=== PATIENT | male | born 1965 | race Caucasian/White ===

== ENCOUNTER 2020-09-27 13:14 | Outpatient (REF) | payer OTHER, SELFPAY ==
[2020-09-27 16:11] LABS: Anion Gap 8.9 mmol/L (3-11); BUN 13 mg/dL (7-18); CO2 31.1 mmol/L (21.0-32.0); CREATININE 0.8 mg/dL (0.70-1.30); Calcium 9.7 mg/dL (8.5-10.1); Calculated LDL 184 mg/dL (<100); Chloride 102 mmol/L (98-107); Cholesterol 290 mg/dL (<200); Glucose 93 mg/dL (74-106); HDL Cholesterol 73 mg/dL (40-60); Potassium 4.2 mmol/L (3.5-5.1); Sodium 142 mmol/L (136-145); Triglyceride 165 mg/dL (<150)
== END 2020-09-27 13:15 | disposition home or self-care (01) ==
LOC: NCHCN 13:14
PROVIDERS: PCP Nurse Practitioner Family; Visit Provider Nurse Practitioner Family
DX: Z00.00 Encounter for general adult medical examination without abnormal findings (principal); I10 Essential (primary) hypertension; M25.521 Pain in right elbow
CPT/HCPCS: 80048; 80061

== ENCOUNTER 2021-08-19 14:08 | Outpatient (CLI) | payer OTHER, SELFPAY ==
--- NOTE | 2021-08-19 14:07 | DI.RAD_ITS ---
Exam(s) XR ELBOW LT COMPLETE EXAM: XR ELBOW LT COMPLETE CLINICAL HISTORY: L elbow pain. TECHNIQUE: 2D digital imaging was performed of the left elbow. Four images were obtained. AP, late ral and oblique views were obtained. COMPARISON: No exams were available for comparison FINDINGS: BONES: No acute fracture is present. No bony destructive lesion is seen. JOINTS: The elbow is normally aligned. No joint effusion is seen. SOFT TISSUE: Normal. IMPRESSION: Unremarkable radiographs of the left elbow. DATA REPOSITORY: RADIATION DOSE DELIVERED:
== END 2021-08-19 14:09 | disposition home or self-care (01) ==
LOC: DIORS 14:08
PROVIDERS: PCP Nurse Practitioner Family; Referring Provider Nurse Practitioner Family; Visit Provider Physician Assistant
DX: M25.522 Pain in left elbow; M77.12 Lateral epicondylitis, left elbow
CPT/HCPCS: 73080

== ENCOUNTER 2021-08-28 02:03 | Outpatient (CLI) | payer OTHER, SELFPAY ==
--- NOTE | 2021-08-28 08:15 | DI.MRI_ITS ---
Exam(s) MR UPPER JOINT LT WO EXAM: MR UPPER JOINT LT WO CLINICAL HISTORY: Persistent pain, LATERAL EPICONDYLITIS LT ELBOW, M77.12. TECHNIQUE: Multiplanar multisequence MRI was performed. COMPARISON: No exams were available for comparison FINDINGS: MR examination the elbow was performed according to the usual protocol. Bones: No significant bony signal abnormality seen in the region the elbow. There is small to moderate size elbow joint effusion. Medial structures: No gross medial tendinosis or ligament disruption. Triceps tendon: Mild signal abnormality at the triceps attachment on the olecranon, mild tendinosis a nd/or low-grade partial-thickness tear Biceps tendon: Abnormal signal consistent with mild biceps tendinosis, no significant tearing distal biceps tendon or radial attachment. Lateral structures: There is a thickened radial humeral meniscus noted. There is a a partial-thickne ss tear of common extensor tendon. Partial-thickness tear of radial collateral ligament and lateral ulnar collateral ligament. Annular ligament appears intact as visualized. IMPRESSION: The findings as described above are consistent with partial thickness tearing of common extensor tend on, approximately 50 percent the tendon appears torn, particularly more proximal components. There i s associated thickening of the radial humeral meniscus and there is probable partial-thickness tear o f radial collateral ligament and lateral ulnar collateral ligament. DATA REPOSITORY:
== END 2021-08-28 02:23 ==
LOC: DI 02:03
PROVIDERS: PCP Nurse Practitioner Family; Visit Provider Student in an Organized Health Care Education/Training Program
DX: M25.522 Pain in left elbow (principal); M77.12 Lateral epicondylitis, left elbow; M25.422 Effusion, left elbow; S56.512A Strain of other extensor muscle, fascia and tendon at forearm level, left arm, initial encounter; X58.XXXA Exposure to other specified factors, initial encounter
CPT/HCPCS: 73221

== ENCOUNTER 2021-09-10 02:18 | Outpatient (CLI) | payer OTHER, SELFPAY ==
[2021-09-10 21:16] LABS: COVID-19 PCR Negative (Negative)
[2021-09-10 23:21] LABS: Source Nasal/Nares
== END 2021-09-10 02:19 | disposition home or self-care (01) ==
LOC: LBO 02:18
PROVIDERS: PCP Nurse Practitioner Family; Visit Provider Student in an Organized Health Care Education/Training Program
DX: Z20.822 Contact with and (suspected) exposure to COVID-19 (principal)
CPT/HCPCS: 87635

== ENCOUNTER 2021-09-12 10:25 | Day surgery (SDC) | payer OTHER, SELFPAY ==
[2021-09-12] VITALS (8 sets, daily range): BP systolic 122–148; BP diastolic 77–98; PULSE 63–82; RESP 13–16; TEMP 36–37; O2SAT 96–99; BMI 25.6
--- NOTE | 2021-09-12 10:44 | W.ANESPRE ---
General Info Date of Service Date Performed: 09/12/21 Height: 5 ft 9 in Weight: 78.8 kg Body Mass Index (BMI): 25.6 Surgical Procedure: Operation Date: 09/12/21 11:35 Proposed Procedure Side Surgeon p Elbow Arthroscopy w/Debridement Lateral Epicondylitis Left Ivan Torres MD Meds Allergies and Home Medications Allergies Allergy/AdvReac Type Severity Reaction Status Date / Time No Known Allergies Allergy Unverified 09/12/21 10:42 Home Medication Medication Instructions Recorded hydrochlorothiazide 25 mg tablet 25 mg PO DAILY 10/14/20 acetaminophen 650 mg 1,300 mg PO Q8H PRN 09/12/21 tablet,extended release aspirin 81 mg tablet,delayed 81 mg PO DAILY 14 Days #14 tab 09/12/21 release naproxen 250 mg tablet 250 - 500 mg PO BID PRN #40 tab 09/12/21 oxycodone 5 mg tablet 5 - 10 mg PO Q4H PRN #12 tab MDD 09/12/21 30 mg Current Visit Medications: Current Medications Generic Name Dose Route Start Last Admin Trade Name Freq PRN Reason Stop Dose Admin Ringer's Solution 1,000 mls @ 100 mls/hr 09/12/21 06:00 IV 10/11/21 23:59 INFUSION TALI Cefazolin Sodium/Dextrose 2 gm in 50 mls @ 100 mls/hr 09/12/21 06:00 Ancef Duplex IVPB 09/12/21 16:00 PREOP TALI IV Miscellaneous Supplies 1 each 09/12/21 06:00 Iv Access IV 10/11/21 23:59 DIRECTED TALI Sodium Chloride 0 ml 09/12/21 06:00 Normal Saline Flush 10 Ml Syr IV 10/11/21 23:59 PRN PRN Sodium Chloride 0 ml 09/12/21 06:00 Normal Saline 10 Ml Vial IJ 10/11/21 23:59 DIRECTED PRN Sterile Water 0 ml 09/12/21 06:00 Water,Injection,Sterile 10 Ml Vial IJ 10/11/21 23:59 DIRECTED PRN PFSH Active Problems Active Problems: Problem Status Onset Code Lateral epicondylitis of left elbow M77.12 Medical History Medical History Arthritis HTN (hypertension) Surgical History Surgical History Colonoscopy - MAC (02/05/17) Tobacco Smoking/Tobacco Use Status: Former Tobacco Use Alcohol Alcohol Intake: current Alcohol intake frequency: 3 or more drinks per day Alcohol type: beer Substance Use Substance use: Never Substance use type: does not use Vital Signs and Lab Results Vital Signs Most Recent Vital Signs in EMR: Most Recent Vital Signs Temp Pulse Resp BP Pulse Ox 37.0 C 76 16 122/89 99 09/12/21 10:38 09/12/21 10:38 09/12/21 10:38 09/12/21 10:38 09/12/21 10:38 Lab Results Blood Type / Crossmatch: No Data to Display Complete Blood Count: No Data to Display Complete Metabolic Panel: No Data to Display Liver Function Panel: No Data to Display Coagulation Panel: No Data to Display Cardiac Panel: No Data to Display Arterial Blood Gas: No Data to Display Venous Blood Gas: No Data to Display Pancreas Panel: No Data to Display Thyroid Panel: No Data to Display Infectious Disease: Coronavirus (COVID-19)(PCR) Negative (Negative) 09/10/21 08:45 09/10/21 Coronavirus 2019 Source Nasal/Nares 09/10/21 08:45 09/10/21 Blood Cultures: No Data to Display Toxicology Panel: No Data to Display Anesthesia Assessment and Plan Anesthesia History Personal History: No History of Anesthesia Complications Family History: No Family History of Anesthesia Complications Exercise Tolerance Exercise Tolerance: Metabolic Equivalents>4 Pertinent Negatives Pertinent Negatives: No Symptoms of GERD, No Major Cardiovascular Symptoms or Complaints and No Major Pulmonary Symptoms or Complaints Cardiac & Pulmonary Exam Cardiac Exam: Normal S1/S2 Heart Sounds Pulmonary Exam: Clear Bilateral Breath Sounds Implantable Cardiac Device Does patient have a Pacemaker or an ICD?: No Airway Exam Known Difficult Airway: No Mallampati Class: 3 Mouth Opening: Narrow (< 3cm) Thyromental Distance: Less than 3 cm Neck Range of Motion: Limited ROM Neck Circumference: Normal Teeth Condition: Normal Dentition ASA Classification ASA Score: ASA 2 Emergency Case?: No NPO Status NPO Status: NPO Clears >2 hours, Solids >8 hours Anesthesia Plan Resuscitation Status: Full Code Anesthesia Technique: General Anesthesia Airway Planned: Endotracheal Tube Pain Management: Surgeon and patient request nerve block Monitors Used: Standard Monitors Preoperative Comments:: 55 yo male with left elbow epicondylitis. Sig PMHx: former smoker, 3 drinks etoh/day, HTN (HCTZ). Plan: supraSHIRAZ blackwell.
[2021-09-12] MEDS: Lactated Ringers 1,000 ML 100 ML IV (11:02)
--- NOTE | 2021-09-12 12:34 | W.ANESNERVE ---
Nerve Block Single Injection Procedure Date and Time Date Performed: 09/12/21 Procedure Start: 12:20 Location Where Procedure Performed Procedure Location: Day Surgery Unit Reason Performed: Postoperative Analgesia Requesting Provider: Ivan Torres Timeout Performed Timeout Performed: Yes Monitoring Used ECG, Blood Pressure and SpO2 Sterility Sterility: Hand Hygiene, Surgical Cap, Surgical Mask, Sterile Gloves and Chlorhexidine Sedation Given During Procedure Sedation Given (Indicate Dose Given): Versed IV Dose:: 2 mL Patient Mental Status Patient Mental Status: Sedate with meaningful communication Nerve Block 1st Nerve Block: Laterality: Left Block Type: Supraclavicular Needle / Catheter Used: 100mm SonoPlex II Local Anesthetic Bolus (Indicate Dose Given): Lidocaine used for local infiltration of skin, Injected in 3-5ml increments after negative blood aspiration, Bupivacaine 0.5% Dose:: 15 mL and Exparel Dose:: 10 mL Additives (Indicate Dose Given): None Ultrasound: Sterile probe cover and gel used Ultrasound Image Saved?: Yes Nerve Stimulator: Not Used Paresthesia: None Procedure Tolerated: No Complications Procedure Outcome: Successful Performed By: Eladio Funk
[2021-09-12] MEDS: ceFAZolin 2 GM/50 ML BAG IVPB (13:07)
[2021-09-12] MEDS: EPINEPHrine 30 MG/30 ML VIAL (13:52)
--- NOTE | 2021-09-12 14:31 | W.ANESPOSTOP ---
Postoperative Evaluation Date, Time and Location Date Performed: 09/12/21 Time Performed: 14:32 Patient Location: PACU Vital Signs Most Recent Imported Vital Signs: Most Recent Vital Signs Temp Pulse Resp BP Pulse Ox 36.3 C L 64 14 136/77 98 09/12/21 14:24 09/12/21 14:24 09/12/21 14:24 09/12/21 14:24 09/12/21 14:24 Pain Score Most Recent Pain Score: Most Recent Pain Score Pain Level 0 09/12/21 14:24 Assessment Mental Status: Awake (Alert & Oriented to Patient Baseline) Airway and Respiratory Function: Abnormal Respiratory exam (See explanation) Cardiovascular Function: Hemodynamically Stable Hydration Status: Adequately Hydrated Nausea & Vomiting: No Nausea or Vomiting Pain: Pt. Denies Any Pain Peripheral Nerve Block: Regional nerve block not resolved at time of post operative discharge
--- NOTE | 2021-09-12 14:54 | W.PM.DSUDISC ---
Discharge Plan Disposition Patient Disposition: HOME Condition: Stable Discharge Details Reason For Visit: Left elbow surgery Attending Provider: Ivan Torres Primary Care Provider: Aleisha Decker Home Meds and New Rx's Prescriptions: New naproxen 250 mg tablet 250 - 500 mg PO BID PRNQty: 40 0RF Rx Instructions: take with a meal aspirin 81 mg tablet,delayed release (DR/EC) 81 mg PO DAILY 14 Days Qty: 14 0RF oxycodone 5 mg tablet 5 - 10 mg PO Q4H MDD 30 mg PRN (Reason: moderate to severe pain) Qty: 12 0RF Continued hydrochlorothiazide 25 mg tablet 25 mg PO DAILY 0RF No Action acetaminophen [Tylenol Arthritis] 650 mg Tablet Extended Release 1,300 mg PO Q8H PRN0RF Discharge Instructions Additional Instructions: Surgery: Left elbow arthroscopy with debridement lateral epicondylitis Activity: Weightbearing as tolerated. Advance range of motion as comfort allows. Important to restore full elbow extension as soon as possible. Recommend avoiding repetitive activities and heavy lifting for 6-8 weeks. A physical therapy prescription will be provided on follow-up if needed. Prescriptions: Aspirin 81 mg take 1 daily to prevent a blood clot for 14 days Naproxen 250 mg take 1-2 every 12 hours with a meal as needed for moderate pain Oxycodone 5 mg take 1-2 every 4-6 hours as needed for severe pain You may use [id number] Tylenol (acetaminophen) as needed for mild pain. These pain medications may be taken all at once or in different combinations as needed. Also, recommend Colace (docusate) as a stool softener as surgery and pain medicine cause constipation. Dressings: Leave dressing in place for 3 days. May then remove and leave open to air or cover incisions with Band-Aids. May shower after 5 days. Follow-up: 10-14 days with orthopedic physician geriatric nursing assistant and 6-[address] Torres Let us know right away if you develop any redness, drainage, fevers, chest pain, or trouble breathing. Do not drink alcohol or drive for at least 24 hours after anesthesia. Please call the office during business hours with any questions or concerns. Referrals: Ivan Torres MD [ [facility] STAFF PHYSICIAN] - Discharge Orders Discharge Orders: Discharge Order (Routine); Ordered 02/18/22 Ordered By: Ivan Torres DS: Diagnosis Discharge Diagnosis (1) Lateral epicondylitis of left elbow: Status: Acute
--- NOTE | 2021-09-12 14:57 | W.PM.OP ---
Operative Note Operative Note DATE OF PROCEDURE: 09/12/21 PRE-OP DIAGNOSIS: Left elbow lateral epicondylitis POST-OP DIAGNOSIS: same PROCEDURE: Left elbow arthroscopy with debridement lateral epicondylitis, CPT # [address]22 SURGEON: Ivan Torres INFORMATION ASSURANCE OFFICER: None None Refer to Anesthesia Record ESTIMATED BLOOD LOSS: 5 TOURNIQUET TIME: 0 COMPLICATIONS: None Patient was transported to: PACU Patient's condition: stable Indications: Please see complete medical record for details. Findings: Mild anterior and lateral synovitis. Intact cartilaginous surfaces. Thickened ECRB and to a lesser extent ECRL. Procedure Description: In the operating room, general anesthesia was induced. The patient was positioned lateral on the operating room table. All bony prominences were well-padded. Preoperative antibiotics were administered. The elbow was prepped and draped in the usual sterile fashion. The correct patient, procedure, and side of the procedure were all verified prior to incision. 20 cc of normal saline was used to insufflate the right elbow joint through the lateral soft spot. The juan ramon and spread technique was used to establish the proximal anteromedial portal. A diagnostic arthroscopy of the anterior elbow compartment was performed with findings noted above. A spinal needle was used to localize a modified direct lateral working portal for lateral epicondyle and common extensor origin debridement. The spinal needle was used to set the superior and inferior margins of the resection as well as free up disease tissue from its bony origin. Next a scalpel was used to juan ramon the skin followed by straight snap to spread down to the diseased tendon tissue, and a Wainwright blade used to meticulously release the ECRB as well as adjacent thickened diseased ECRL tendon from the lateral epicondyle. Care was taken to work anterior to the midline of the radial head to preserve the radial collateral ligament. A 3.5 mm shaver was used to debride approximately 1 cm of diseased tendon and lightly abrade lateral epicondyle bony origin. Shaver was also used to remove the small amount of lateral and anterior synovitis. The elbow was drained of arthroscopic fluid. The medial and lateral portals were closed using 3-0 Monocryl in a buried interrupted fashion. Mastisol was applied about the incisions which were covered with Steri-Strips. Xeroform pieces were applied over both incisions and covered with dry 4 x 4 gauze. The radial pulse was 2+. The elbow was gently compressed with jose luis bandage. The patient awoke from anesthesia without complication and was transferred to the recovery room in stable fashion.
== END 2021-09-12 16:00 | disposition home or self-care (01) ==
PROVIDERS: PCP Nurse Practitioner Family; Visit Provider Student in an Organized Health Care Education/Training Program
PROC: (CPT 29830; principal; 2021-09-12 11:15)
DX: M77.12 Lateral epicondylitis, left elbow (principal); I10 Essential (primary) hypertension
CPT/HCPCS: 29837; 76942; J0690; J1100; J1885; J2001; J2250; J2405

== ENCOUNTER 2022-08-14 18:39 | Outpatient (REF) | payer OTHER, SELFPAY ==
[2022-08-14 17:22] LABS: Anion Gap 6.4 mmol/L (3-11); BUN 15 mg/dL (7-18); CO2 28.6 mmol/L (21.0-32.0); CREATININE 0.9 mg/dL (0.70-1.30); Calcium 9.2 mg/dL (8.5-10.1); Calculated LDL 164 mg/dL (<100); Chloride 105 mmol/L (98-107); Cholesterol 264 mg/dL (<200); Estimated GFR 100.86 (mL/min/1.73m2); Glucose 99 mg/dL (74-106); HDL Cholesterol 81 mg/dL (40-60); Potassium 4.3 mmol/L (3.5-5.1); Sodium 140 mmol/L (136-145); Triglyceride 97 mg/dL (<150)
== END 2022-08-14 18:40 | disposition home or self-care (01) ==
LOC: NCHCN 18:39
PROVIDERS: PCP Nurse Practitioner Family; Visit Provider Nurse Practitioner Family
DX: I10 Essential (primary) hypertension (principal); E78.5 Hyperlipidemia, unspecified
CPT/HCPCS: 80048; 80061

== ENCOUNTER 2024-01-20 14:24 | Outpatient (REF) | payer OTHER, SELFPAY ==
[2024-01-20 19:31] LABS: Hemoglobin A1C 5.4 % (<5.7)
[2024-01-20 19:44] LABS: ALT 30 U/L (16-63); AST 20 U/L (15-37); Albumin 4.3 g/dL (3.4-5.0); Alkaline Phosphatase 64 U/L (46-116); Anion Gap 7.5 mmol/L (3-11); BUN 10 mg/dL (7-18); Bilirubin, Total 0.89 mg/dL (0.2-1.0); CO2 29.5 mmol/L (21.0-32.0); CREATININE 0.9 mg/dL (0.70-1.30); Calcium 9.3 mg/dL (8.5-10.1); Chloride 102 mmol/L (98-107); Estimated GFR 99.62 (mL/min/1.73m2); Glucose 99 mg/dL (74-106); Potassium 4.6 mmol/L (3.5-5.1); Sodium 139 mmol/L (136-145); Total Protein 7.3 g/dL (6.4-8.2)
[2024-01-20 20:21] LABS: Calculated LDL 119 mg/dL (<100); Cholesterol 235 mg/dL (<200); HDL Cholesterol 102 mg/dL (40-60); Triglyceride 74 mg/dL (<150)
== END 2024-01-20 14:25 | disposition home or self-care (01) ==
LOC: NCHCN 14:24
PROVIDERS: Visit Provider Nurse Practitioner Family
DX: I10 Essential (primary) hypertension (principal); E78.5 Hyperlipidemia, unspecified; Z13.1 Encounter for screening for diabetes mellitus
CPT/HCPCS: 80053; 80061; 83036